=== PATIENT | male | born 1990 | race Asian ===

== ENCOUNTER 2020-10-10 15:26 | Outpatient (REF) | payer SELFPAY | END 2020-10-10 15:27 | disposition home or self-care (01) | LOC: HO.LAB 15:26 | PROVIDERS: Visit Provider Hospitalist | DX: Z20.828 Contact with and (suspected) exposure to other viral communicable diseases (principal) | CPT/HCPCS: U0003 ==

== ENCOUNTER 2021-05-14 15:45 | Outpatient (REF) | payer OTHER, BC, SELFPAY ==
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
== END 2021-05-14 15:46 | disposition home or self-care (01) ==
LOC: HO.HMGCX 15:45
PROVIDERS: Visit Provider Nurse Practitioner Family
DX: M54.2 Cervicalgia (principal); M25.511 Pain in right shoulder; V29.9XXA Motorcycle rider (driver) (passenger) injured in unspecified traffic accident, initial encounter
CPT/HCPCS: 72040; 73000; 73030

== ENCOUNTER 2023-01-01 08:57 | Emergency (ER) | payer OTHER, SELFPAY ==
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
[2023-01-01 09:04] VITALS: BP 150/90; PULSE 78
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
[2023-01-01 09:15] VITALS: BP 161/81; PULSE 74; RESP 16; TEMP 36.4; O2SAT 100; BMI 33.9
[2023-01-01] MEDS: Ketorolac Tromethamine 15 MG/ML VIAL IM (10:08)
== END 2023-01-01 11:03 | disposition home or self-care (01) ==
PROVIDERS: Emergency Provider Emergency Medicine
DX: M25.511 Pain in right shoulder (principal); S49.91XA Unspecified injury of right shoulder and upper arm, initial encounter; V43.52XA Car driver injured in collision with other type car in traffic accident, initial encounter; Y92.410 Unspecified street and highway as the place of occurrence of the external cause; Y99.9 Unspecified external cause status
CPT/HCPCS: 71046; 73030; 73200; 96372; 99283; 99284; J1885

== ENCOUNTER → 2023-01-19 10:26 | Outpatient (BNVA) | payer OTHER, SELFPAY | PROVIDERS: PCP Internal Medicine; Visit Provider Physician Assistant | DX: S13.9XXA Sprain of joints and ligaments of unspecified parts of neck, initial encounter (principal) | CPT/HCPCS: 99202 ==

== ENCOUNTER → 2023-03-02 09:47 | Outpatient (BNVA) | payer OTHER, SELFPAY | PROVIDERS: PCP Internal Medicine; Visit Provider Physician Assistant | DX: M25.511 Pain in right shoulder (principal) | CPT/HCPCS: 99212 ==

== ENCOUNTER 2023-03-05 07:00 | Outpatient (RCR) | payer OTHER, SELFPAY ==
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
== END 2023-04-06 07:21 | disposition home or self-care (01) ==
LOC: HO.PTCHIC 07:00
PROVIDERS: PCP Internal Medicine; Visit Provider Internal Medicine
DX: M25.511 Pain in right shoulder (principal); M25.521 Pain in right elbow; M25.421 Effusion, right elbow
CPT/HCPCS: 97014; 97110; 97140; 97161

== ENCOUNTER → 2023-03-10 10:10 | Outpatient (BNVA) | payer OTHER, SELFPAY | PROVIDERS: PCP Internal Medicine; Visit Provider Registered Nurse Emergency | DX: M25.519 Pain in unspecified shoulder (principal); M54.2 Cervicalgia | CPT/HCPCS: 99202 ==

== ENCOUNTER 2023-04-02 13:01 | Outpatient (REF) | payer OTHER, SELFPAY | END 2023-04-02 13:02 | disposition home or self-care (01) | LOC: HO.MRI 13:01 | PROVIDERS: PCP Internal Medicine; Visit Provider Physician Assistant | DX: Z13.89 Encounter for screening for other disorder (principal) ==

== ENCOUNTER 2023-04-05 09:30 | Outpatient (RCR) | payer OTHER, SELFPAY ==
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
--- NOTE | 2023-05-10 09:35 | MHC.OT.DC ---
[address] [phone] F: [phone] Occupational Therapy Discharge Note Patient Name: Jimmy Perla Provider: Ana Dockery Diagnosis: Right elbow effusion Date of Surgery: Date of Evaluation: 03/24/23 Date of Discharge: 05/10/23 Treatments to Date: 5 Cancellations to Date: 0 No Shows to Date: 0 Discharge Status: Improved Function Independent with HEP Discharge Summary: STG met for ther ex and ADL. LTG met for complaints coordinator strength and lifting tolerance Dec complaint of pain, increased tolerance with ther ex. Improved shoulder pain noted with lift off ex [employer] R 95 lb L 80 lb Wt bearing on scale Right 80 lb L 100 lb . complaint of shoulder discomfort. Electronically Signed By: Aline Weston OT CHT CLT Reviewed/agree with student documentation: Therapist: Please Sign and return to therapist, thank you for your referral.
== END 2023-05-10 09:36 | disposition home or self-care (01) ==
LOC: HO.OT 09:30
PROVIDERS: PCP Internal Medicine; Visit Provider Internal Medicine
DX: M25.521 Pain in right elbow (principal); M25.421 Effusion, right elbow
CPT/HCPCS: 97035; 97110; 97165

== ENCOUNTER 2023-05-06 11:37 | Outpatient (AMB) | payer OTHER, SELFPAY ==
--- NOTE | 2023-05-06 11:38 | MHC.OFFVIS ---
Intake Intake Visit Reasons: Tele- MRI Review RT shoulder pain DOI 01/01/2023 Intake Note: Jimmy is a 32 year old patient who has a telehealth visit for his MRI review of his right shoulder. Allergies mometasone furoate [From NASONEX] Allergy (Intermediate, Verified 05/06/23 11:38) PALPITATIONS cat dander Allergy (Unknown, Verified 05/06/23 11:38) unknown Doxycycline Hyclate Allergy (Unknown, Verified 05/06/23 11:38) Hives, hives;fever fluticasone [From Flonase] Allergy (Unknown, Verified 05/06/23 11:38) heart palpitations oxycodone [Percocet] Allergy (Unknown, Verified 05/06/23 11:38) nausea/dizziness Flour/Dough Allergy (Unknown, Uncoded 03/10/23 10:29) Hives/trouble breathing HPI Tele- MRI Review RT shoulder pain DOI 01/01/2023 HPI Details 32-year-old male who presents via telehealth today for a follow up of right shoulder pain and review of his MRI. The patient reports new symptoms that began in the last few weeks of numbness and tingling that extends in to all digits. [facility] Medical History Diffuse abdominal pain Erythema intertrigo Family history of Crohn's disease GERD (gastroesophageal reflux disease) GI bleed Hidradenitis suppurativa of left axilla Obesity Pain of acromioclavicular joint after trauma Surgical History No pertinent past surgical history Family History Father Unknown family medical history Subacromial bursitis of both shoulders Substance abuse Mother IBS (irritable bowel syndrome) Mental health disorder Maternal Grandmother Unknown family medical history Brother Crohn's disease Maternal Aunt Crohn's disease Social History Housing: House Alcohol intake: never Patient Tobacco Use Status: Never used Tobacco e-Cigarette/Vaping Use: Never Used Second Hand Smoke Exposure: No service: No Current occupational status: employed Cognitive needs: No Hearing needs: No Vision needs: No Review of Systems Const All systems reviewed & are unremarkable except as noted in HPI and below Physical Exam Extrem Other: Deferred due to being a telehealth visit. Assessment & Plan Assessment & Plan (1) Pain of acromioclavicular joint after trauma: Code(s): M25.519 - Pain in unspecified shoulder (2) Pain in clavicular joint: Code(s): M25.519 - Pain in unspecified shoulder (3) Shoulder pain: Code(s): M25.519 - Pain in unspecified shoulder Plan Mr. Adair Perla is a 32-year-old male who presents via telehealth today for a follow up of right shoulder pain and review of his MRI. The patient reports new symptoms that began in the last few weeks of numbness and tingling that extends in to all digits. Due to the new symptoms he will be referred to Pain Management for further evaluation and treatment of the cervical spine. He is in agreement. The patient has been out of work and therefore an out of work note have been provided stating he will remain out of work until he is seen by Pain management. Follow up with orthopedics will be PRN, or sooner if needed. MRI of the right shoulder, obtained at [facility] on 04/16/2023, revealed: 1. No rotator cuff tear. 2. No joint effusion. Orders: Referrals Pain Management Referral S13.9XXA - Sprain of joints and ligaments of unspecified parts of neck, initial encounter, S46.819A - Strain of other muscles, fascia and tendons at shoulder and upper arm level, unspecified arm, initial encounter Patient Instructions: Scribed for Phuong Javier PA-C by [facility] medical staff assistant, on 05/06/2023 at 11:37 am, EST. Your attestation Telehealth Telehealth Location of provider rendering services: practice address Location of patient: address on file Patient Identification confirmed using: Name, : Yes Telehealth method: voice only Patient verbally consented to treatment: Yes Patient verbally consented to billing insurance company: Yes Patient informed of any privacy concerns related to visit: Yes Minutes spent on Phone/Video with Pt.: 5 Coding Level of Care Code Tele Est Pt Level 3 (09177) Diagnoses Pain of acromioclavicular joint after trauma M25.519 Pain in clavicular joint M25.519 Shoulder pain M25.519
== END 2023-05-06 11:49 | disposition home or self-care (01) ==
LOC: HO.HOS 11:37
PROVIDERS: PCP Internal Medicine; Visit Provider Physician Assistant
DX: M25.511 Pain in right shoulder (principal); S13.9XXA Sprain of joints and ligaments of unspecified parts of neck, initial encounter
CPT/HCPCS: 99213

== ENCOUNTER → 2023-05-06 11:37 | Outpatient (BNVA) | payer OTHER, SELFPAY | PROVIDERS: PCP Internal Medicine; Visit Provider Physician Assistant ==

== ENCOUNTER 2023-05-12 09:25 | Outpatient (AMB) | payer OTHER, SELFPAY ==
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
[2023-05-12 09:42] VITALS: BP 150/87; PULSE 75; O2SAT 98; BMI 34.9
== END 2023-05-12 10:16 | disposition home or self-care (01) ==
PROVIDERS: PCP Internal Medicine; Visit Provider Registered Nurse Emergency
DX: M54.12 Radiculopathy, cervical region (principal); M79.18 Myalgia, other site; S46.819A Strain of other muscles, fascia and tendons at shoulder and upper arm level, unspecified arm, initial encounter
CPT/HCPCS: 99214

== ENCOUNTER → 2023-05-12 09:25 | Outpatient (BNVA) | payer OTHER, SELFPAY | PROVIDERS: PCP Internal Medicine; Visit Provider Registered Nurse Emergency | DX: M54.12 Radiculopathy, cervical region (principal); M79.18 Myalgia, other site; S46.811D Strain of other muscles, fascia and tendons at shoulder and upper arm level, right arm, subsequent encounter; M25.511 Pain in right shoulder; X58.XXXD Exposure to other specified factors, subsequent encounter | CPT/HCPCS: 99212 ==

== ENCOUNTER 2024-11-09 14:15 | Outpatient (AMB) | payer OTHER, SELFPAY ==
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
[2024-11-09 14:28] VITALS: BP 144/92; PULSE 67; O2SAT 98
== END 2024-11-09 14:41 | disposition home or self-care (01) ==
PROVIDERS: PCP Internal Medicine; Visit Provider Registered Nurse Emergency
DX: M54.12 Radiculopathy, cervical region (principal); M79.18 Myalgia, other site; S46.819A Strain of other muscles, fascia and tendons at shoulder and upper arm level, unspecified arm, initial encounter
CPT/HCPCS: 99213; G2211

== ENCOUNTER → 2024-11-09 14:15 | Outpatient (BNVA) | payer OTHER, SELFPAY | PROVIDERS: PCP Internal Medicine; Visit Provider Registered Nurse Emergency | DX: M54.12 Radiculopathy, cervical region (principal); M79.18 Myalgia, other site; S46.819A Strain of other muscles, fascia and tendons at shoulder and upper arm level, unspecified arm, initial encounter | CPT/HCPCS: 99212 ==

== ENCOUNTER 2025-03-28 13:43 | Outpatient (AMB) | payer OTHER, SELFPAY ==
--- OUTSIDE RECORDS SUMMARY | 2025-03-28 13:55 | XMS_ITS | Clinical Summary ---
Author Organization [facility] Address [address] [place] [address] Care Team Providers Care Sr Technical Sales Consultant Name Role Phone Unavailable Primary Care Provider Unavailabl e Immunizations Immunization Administration Dates Next Due Covid-19, Vector-nr (Flo), 0.5 Ml 01/30/2021 Hep B (adult) 11/28/2020 Influenza,injectable,quad,Prsrv Fr 11/28/2020 Social History Tobacco Use Types Packs/Day Years Used Date Smoking Tobacco: Never Assessed Sex and Gender Information Value Date Recorded Sex Assigned at Not on file Legal Sex Male 3:10 PM EDT Gender Identity Not on file Sexual Orientation Not on file Plan of Treatment Health Maintenance Due Date Last Done Comments Hepatitis C Screening 1988 DTaP/Tdap/Td (1 - Tdap) 2006 Hep B (2 of 3 - 19+ 3-dose series) 12/26/20202020 COVID-19 Vaccine (2 - 2023-2 5 season) 2024 01/30/2021 Influenza (Season Ended) 2025 11/28/2020 Zoster (Shingrix) (1 of 2) 2038 HPV Vaccine Aged Out No longer eligi ble based on patient's age to complete this topic Hep A Aged Out No longer eligi ble based on patient's age to complete this topic Hib Aged Out No longer eligi ble based on patient's age to complete this topic Meningococcal ACWY Aged Out No longer eligible based on patient's age to complete this topic Pneumococcal Aged Out No longer eligi ble based on patient's age to complete this topic
[2025-03-28 14:29] VITALS: BP 140/70; PULSE 71; RESP 16; TEMP 36.7; O2SAT 98; BMI 35.4
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
== END 2025-03-28 15:08 | disposition home or self-care (01) ==
PROVIDERS: PCP Internal Medicine; Visit Provider Physician Assistant
DX: F41.0 Panic disorder [episodic paroxysmal anxiety] (principal); M54.6 Pain in thoracic spine; Z13.9 Encounter for screening, unspecified

== ENCOUNTER → 2025-03-28 13:43 | Outpatient (BNVA) | payer OTHER, SELFPAY | PROVIDERS: PCP Internal Medicine; Visit Provider Physician Assistant | DX: F41.0 Panic disorder [episodic paroxysmal anxiety] (principal); F41.9 Anxiety disorder, unspecified; M54.6 Pain in thoracic spine; Z71.89 Other specified counseling | CPT/HCPCS: 81003 ==

== ENCOUNTER 2025-03-30 15:09 | Outpatient (AMB) | payer OTHER, SELFPAY ==
--- NOTE | 2025-03-30 15:11 | A.OFFVIS_ITS ---
Vital Signs 03/30/25 15:12 03/30/25 15:30 Height 6 ft Weight 251 lb BMI 34.0 BP 166/96 H 161/88 H Blood Pressure Location Lt brachial Lt brachial Position Sitting Sitting Pulse 89 86 Pulse Source Pulse Oximeter Pulse Oximeter Pulse Oximetry (%) 100 100 Oxygen Delivery Method Room Air Room Air Intake Visit Reasons: Back Pain Intake Note: Patient blood pressure is high. Girlfriend stated he has been having anxiety issues this week of 03/30/25. Patient went to an urgent care on Wednesday and he was prescribed Meloxicam 15 mg and hydroxyzine 25 mg. Second set of vitals were taken. 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 Accompanied by: Life Partner Allergies mometasone furoate [From NASONEX] Allergy (Intermediate, Verified 03/30/25 15:45) PALPITATIONS cat dander Allergy (Unknown, Verified 03/30/25 15:45) unknown Doxycycline Hyclate Allergy (Unknown, Verified 03/30/25 15:45) Hives, hives;fever fluticasone [From Flonase] Allergy (Unknown, Verified 03/30/25 15:45) heart palpitations oxycodone [Percocet] Allergy (Unknown, Verified 03/30/25 15:45) nausea/dizziness Flour/Dough Allergy (Unknown, Uncoded 03/28/25 14:30) Hives/trouble breathing HPI Comments Details: Jimmy is very pleasant 34-year-old male who presented to the office today for evaluation management of his lower back pain. Upon arrival he was found to be hypertensive 166/96 and complaining of significant anxiety over the past several days. He is accompanied by his significant other. Patient was evaluated at urgent care 2 days ago, given meloxicam and hydroxyzine. He reports no improvement with hydroxyzine. Has an appointment with psychologist in one-week Denies SI/HI/SH. He is unable to detail what is causing his anxiety/panic attacks. Today states he was mainly in the basement with a pillow over his head as the anxiety was just unbearable. Girlfriend says he did go for a walk at one point and ate part of a sandwich but otherwise remained in the home. [facility] Medical History Diffuse abdominal pain Erythema intertrigo Family history of Crohn's disease GERD (gastroesophageal reflux disease) GI bleed Hidradenitis suppurativa of left axilla Obesity Pain of acromioclavicular joint after trauma Surgical History No pertinent past surgical history Family History Father Unknown family medical history Subacromial bursitis of both shoulders Substance abuse Mother IBS (irritable bowel syndrome) Mental health disorder Maternal Grandmother Unknown family medical history Brother Crohn's disease Maternal Aunt Crohn's disease Social History Housing: House Alcohol intake: never Patient Tobacco Use Status: Never used Tobacco e-Cigarette/Vaping Use: Never Used Second Hand Smoke Exposure: No service: No Current occupational status: employed Cognitive needs: No Hearing needs: No Vision needs: No Review of Systems Const All systems reviewed & are unremarkable except as noted in HPI and below Physical Exam Vital Signs: Last Vital Signs Pulse 86 03/30/25 15:30 BP 161/88 H 03/30/25 15:30 Pulse Ox 100 03/30/25 15:30 Oxygen Delivery Method Room Air 03/30/25 15:30 BMI result Body Mass Index 34.0 General: Anxious, pale, diaphoretic. HEENT: Normocephalic. Hearing intact. Cardiac: External chest normal in appearance. Respiratory: No cough, audible wheezing or stridor. Abdomen: without gross distension. MS: No obvious swelling or deformities. Neurological: Oriented to person, place, time and situation. Thought process intact. Assessment & Plan Assessment & Plan (1) Back pain: Code(s): M54.9 - Dorsalgia, unspecified Category: Medical Qualifiers: Back pain location: thoracic back pain Chronicity: acute Back pain laterality: left Qualified Code(s): M54.6 - Pain in thoracic spine (2) Panic attacks: Code(s): F41.0 - Panic disorder [episodic paroxysmal anxiety] Category: Medical Plan Patient agreed to be in the emergency room. He was escorted there by his significant other. Ambulated out of our department with a steady gait. Denies SI, HI, self-harm. They were advised to contact [facility] if needed for emergency evaluation. In crisis [facility] will also come to their home. Patient was advised to follow up in our office for evaluation and management of his lower back pain once his anxiety/mental health has been addressed. Coding Level of Care Code Est Pt Level 3 (09934) Complex EM visit Add On G2211 Diagnoses Acute left-sided thoracic back pain M54.6 Back pain location: thoracic back pain Chronicity: acute Back pain laterality: left Panic attacks F41.0
[2025-03-30 15:12] VITALS: BP 166/96; PULSE 89; O2SAT 100; BMI 34.0
--- OUTSIDE RECORDS SUMMARY | 2025-03-30 15:12 | XMS_ITS | Clinical Summary ---
Author Organization [facility] Address [address] [place] [address] Care Team Providers Care Research Program Coordinator Name Role Phone Unavailable Primary Care Provider [...]
[2025-03-30 15:30] VITALS: BP 161/88; PULSE 86; O2SAT 100
== END 2025-03-30 15:29 | disposition home or self-care (01) ==
LOC: HO.PMC 15:10
PROVIDERS: PCP Internal Medicine; Visit Provider Registered Nurse Emergency
DX: M54.6 Pain in thoracic spine (principal); F41.0 Panic disorder [episodic paroxysmal anxiety]
CPT/HCPCS: 99213; G2211

== ENCOUNTER → 2025-03-30 15:09 | Outpatient (BNVA) | payer OTHER, SELFPAY | PROVIDERS: PCP Internal Medicine; Visit Provider Registered Nurse Emergency | DX: M54.6 Pain in thoracic spine (principal); F41.0 Panic disorder [episodic paroxysmal anxiety] | CPT/HCPCS: 99212 ==

== ENCOUNTER 2025-03-30 15:33 | Emergency (ER) | payer OTHER, SELFPAY ==
--- NOTE | ~2025-03-30 | XR_ITS ---
CLINICAL HISTORY: central chest pain 2 view chest x-ray. Comparison: None Findings: The lungs appear clear. There is no consolidation, effusion, or pneumothorax. Cardiomediastinal silhouette is within normal limits. IMPRESSION: No acute cardiopulmonary abnormality. This document has been electronically signed by: Babatunde Rodarte MD on 03/31/2025 02:29:30
--- NOTE | 2025-03-30 15:34 | ECG_ITS ---
Test Reason : cp Blood Pressure : */* mmHG Vent. Rate : 86 BPM Atrial Rate : 86 BPM P-R Int : 134 ms QRS Dur : 92 ms QT Int : 350 ms P-R-T Axes : 62 25 27 degrees QTcB Int : 418 ms Sinus rhythm with marked sinus arrhythmia Otherwise normal ECG When compared with ECG of 08-Sep-2014 12:43, No significant change was found Referred By: Phoebe Nichols Electronically Signed By: KAMRON GILLIS
[2025-03-30 15:39] VITALS: BP 152/93; PULSE 85; RESP 16; TEMP 36.2; O2SAT 100; BMI 34.3
--- NOTE | 2025-03-30 15:46 | ED_ITS ---
HPI - General Adult General Chief complaint: Anxiety Stated complaint: chest pain panic attack Time Seen by Provider: 03/30/25 22:36 History of Present Illness ED Provider: Noah Drake MD HPI narrative: 34-year-old male with a history of self-described anxiety recently prescribed Atarax. He has had multiple recurrent episodes of transient self-limited difficulty breathing rapid heart rate and anxious dissociated feeling. Today he had this associated with constant atypical tightness of the anterior chest without radiation. No numbness tingling or weakness. Related Data Home Medications ?Medication ?Instructions ?Recorded ?Confirmed cholecalciferol (vitamin D3) 10 10 mcg PO DAILY 11/09/24 mcg (400 unit) capsule Previous Rx's ?Medication ?Instructions ?Recorded tizanidine 2 mg tablet 2 mg PO Q8H PRN muscle spasticity 11/09/24 #60 tabs hydroxyzine HCl 25 mg tablet 25 mg PO BEDTIME #14 tabs 03/28/25 meloxicam 15 mg tablet 15 mg PO DAILY PRN pain, moderate 03/28/25 #15 tabs clonazepam 0.5 mg tablet 0.5 mg PO BID 5 days #10 tabs 03/31/25 Allergies Allergy/AdvReac Type Severity Reaction Status Date / Time mometasone furoate Allergy Intermediate PALPITATION Verified 03/30/25 15:45 [From NASONEX] S cat dander Allergy Unknown unknown Verified 03/30/25 15:45 Doxycycline Hyclate Allergy Unknown Hives, Verified 03/30/25 15:45 hives;fever fluticasone [From Flonase] Allergy Unknown heart Verified 03/30/25 15:45 palpitations oxycodone [Percocet] Allergy Unknown nausea/dizz Verified 03/30/25 15:45 iness Flour/Dough Allergy Unknown Hives/trouble Uncoded 03/28/25 14:30 breathing Review of Systems 2 Review of Systems: No smoking no drug use. Decreased appetite but no GI upset or diarrhea PMFSH Past Medical History Medical History Diffuse abdominal pain Erythema intertrigo Family history of Crohn's disease GERD (gastroesophageal reflux disease) GI bleed Hidradenitis suppurativa of left axilla Obesity Pain of acromioclavicular joint after trauma Surgical History No pertinent past surgical history Family History Family History Father Unknown family medical history Subacromial bursitis of both shoulders Substance abuse Mother IBS (irritable bowel syndrome) Mental health disorder Maternal Grandmother Unknown family medical history Brother Crohn's disease Maternal Aunt Crohn's disease Social History Social History Housing: House Alcohol intake: current Patient Tobacco Use Status: Never used Tobacco Smoked in Last 30 Days: No e-Cigarette/Vaping Use: Never Used Second Hand Smoke Exposure: No Use of substances other than those prescribed or required for medical reasons: Yes Substance Use Type: Marijuana Substance Use Frequency: Daily Advance Directives: No Advance Directives Information Provided: No Do you have a plan to hurt others: No Plan service: No Current occupational status: employed Cognitive needs: No Hearing needs: No Vision needs: No Physical Exam ED Vital Signs: Vital Signs - 24 hr 03/30/25 15:39 03/30/25 22:03 03/31/25 00:57 Temperature 97.2 F Pulse Rate 85 75 88 Respiratory Rate 16 16 14 Blood Pressure 152/93 H 132/81 160/96 H Pulse Oximetry 100 99 99 Oxygen Delivery Method Room Air Room Air BMI result Body Mass Index 34.3 Course Course Course Narrative: 03/30/25 1546 JAYESH Maciel This is a Rapid Medical Examination (RME) performed by Rosanna Nichols PA-C in triage. Full HPI, ROS, assessment and treatment plan per primary provider in the Main ED. Hx: 34 yo M here for eval of increased anxiety/ panic attacks x5 days. assoc SOB, palpitations, light headedness. no recent life stressors. no hx of similar prior to 5d ago. PE/vitals: well appearing Plan: labs, ekg Medications Administered Discontinued Medications Generic Name Dose Route Start Last Admin Trade Name Freq PRN Reason Stop Dose Admin Clonazepam 0.5 mg 03/31/25 00:30 03/31/25 00:56 Clonazepam 0.5 Mg Tablet PO 03/31/25 00:31 0.5 mg ONCE ONE Administration Ondansetron HCl 4 mg 03/31/25 00:30 03/31/25 00:56 Ondansetron Odt 4 Mg Tab.Marjorie VELAZQUEZ 03/31/25 00:31 4 mg ONCE ONE Administration Medical Decision Making Medical Decision Making MDM Narrative: 34-year-old male with recurrent episode which is ongoing for few weeks now of anxious feeling follow up by subjective difficulty breathing occasionally associated with chest discomfort today he went into his PCPs office and had another episode which started with spiraling thoughts and chest discomfort anxious and panic feeling sent over from PCP's office to the ED. He does have history of asthma but does not feel dyspneic or wheezing. Denies fever, leg swelling history of DVT or PE. Family history 2 maternal uncles young in the 40s and 50s are possibly suggestive of sudden cardiac or AK but he is not clear if this. He has no personal diagnosed medical history aside from asthma. He has had decreased appetite poor sleep Differential Diagnosis Differential Diagnoses: The differential diagnosis associated with the presentation includes Anxiety, panic disorder, electrolyte derangement, dehydration, thyroid disorder, less likely AK/pericarditis/pleuritis Lab Data MDM Lab Attestation statement: I reviewed the patient's lab results. 03/30/25 15:51 03/30/25 15:51 Labs: Lab Results 03/30/25 03/31/25 Range/Units 15:51 00:49 WBC 11.5 H (4.8-10.8) X10*3/uL RBC 6.10 H (4.60-5.80) X10*6/uL Hgb 17.0 (14.0-18.0) g/dl Hct 50.3 (42.0-52.0) % MCV 82.5 (80.0-98.0) fL MCH 27.9 (27.0-33.0) pg MCHC 33.8 (31.0-36.0) g/dl RDW 13.5 (11.0-16.0) % Plt Count 403 H (160-400) X10*3/uL MPV 9.2 L (9.4-12.4) fL Immature Gran % (Auto) 0.3 (0.0-0.4) % Neut % (Auto) 67.3 (45-73) % Lymph % (Auto) 24.0 (20-40) % Whitman % (Auto) 7.5 (2-11) % Eos % (Auto) 0.3 (0-4) % Baso % (Auto) 0.6 (0-2) % Lymph # (Auto) 2.8 (1.2-4.9) X10*3/uL Whitman # (Auto) 0.9 (0.1-1.2) X10*3/uL Eos # (Auto) 0.0 (0.0-0.4) X10*3/uL Baso # (Auto) 0.1 (0.0-0.2) X10*3/uL Abs Immat Gran (auto) 0.04 H (0.00-0.03) X10*3/uL Absolute Neuts (auto) 7.7 (2.0-8.3) x10*3/uL Absolute Nucleated RBC 0.000 (0.0-0.012) X10*3/uL Nucleated RBC % (auto) 0.0 (0.0-0.2) /100WBC Sodium 143 (135-145) mmol/L Potassium 3.7 (3.3-5.1) mmol/L Chloride 108 (96-108) mmol/L Carbon Dioxide 20 L (22-29) mmol/L Anion Gap 19 (12-20) BUN 11 (9-16) mg/dL Creatinine 0.94 (0.5-1.4) mg/dL Estim Creat Clear Calc 141.9 Estimated GFR > 60 Random Glucose 98 (60-115) mg/dL Calcium 10.8 H (8.4-10.2) mg/dL Magnesium 1.9 (1.6-2.6) mg/dL Total Bilirubin 0.9 (0.0-1.0) mg/dL AST 28 (5-37) U/L ALT 56 H (0-40) U/L Alkaline Phosphatase 125 H (39-117) U/L Troponin I High Sens 12.0 5.4 D (<3.5-35.0) ng/L Total Protein 8.8 H (6.5-8.0) g/dL Albumin 5.7 H (3.5-5.0) g/dL TSH 1.17 (0.32-4.0) uIU/mL Independent Interpretation I performed an independent interpretation of an: EKG (1.: Sinus rate [address]tle [address] depression in lead 3. No acute ischemic changes. Repeat 2. 01/28/2000, sinus, rate 86, QTC 433, unchanged morphology from previous no acute ischemic changes ) Discharge Plan Discharge Clinical Impression: Chest pain, Anxiety Patient Disposition: Home, Self-Care Instructions: Panic Disorder (ED) Additional Instructions: _ DISCHARGE DIAGNOSES: Chest pain unclear cause. Atypical unlikely cardiac in origin. You may need outpatient cardiac testing if this persists HISTORY OF PRESENTATION: ?Anxiety and chest pain EMERGENCY DEPARTMENT COURSE,TESTS, TREATMENTS: While in the ED today you had lab work and EKG including heart attack enzyme blood testing which was normal. EKG was normal. Chest x-ray was normal. You were given clonazepam an anxiety medicine 0.5 mg and Zofran and nausea medicine 4 mg DISCHARGE MEDICATIONS: We have prescribed only as needed for severe anxiety 0.5 mg of clonazepam. FOLLOW-UP: ?Call your primary or general physician soon as possible to discuss your symptoms, your ED visit and to discuss follow up plans Continue with your outpatient scheduled psychiatry follow up this coming INSTRUCTIONS ?& RETURN PRECAUTIONS: If any symptoms change first call your primary physician, if it is after-hours your primary doctors office should have a provider nursing education specialist you can speak with. If the symptoms are severe or very concerning to you then call 911 or return to the ED. Return for severe worsening chest pain difficulty breathing coughing up blood leg swelling or other severe or significant symptoms Noah Drake MD Emergency Physician [facility] Prescriptions: New clonazepam 0.5 mg tablet 0.5 mg PO BID 5 Days Qty: 10 0RF No Action cholecalciferol (vitamin D3) 10 mcg (400 unit) capsule 10 mcg PO DAILY tizanidine 2 mg tablet 2 mg PO Q8H PRN (Reason: muscle spasticity) Qty: 60 3RF Rx Instructions: do not use alcohol while taking this medication. no driving or operating heavy machinery while taking this medication hydroxyzine HCl 25 mg tablet 25 mg PO BEDTIME Qty: 14 0RF meloxicam 15 mg tablet 15 mg PO DAILY PRN (Reason: pain, moderate) Qty: 15 0RF Interventions: ED Discharge Assessment Last Done: 03/31/25 01:45 Discharge Date/Time: 03/31/25 01:51 Print Language: Upper Sorbian
[2025-03-30 15:56] LABS: MANUAL DIFF FLAG NO
[2025-03-30 15:58] LABS: Basophils Absolute Auto 0.1 X10*3/uL (0.0-0.2); Basophils Percent Auto 0.6 % (0-2); Eosinophils Percent Auto 0.3 % (0-4); Hematocrit 50.3 % (42.0-52.0); Imm Gran Abs Auto 0.04 X10*3/uL (0.00-0.03); Imm Gran Pct Auto 0.3 % (0.0-0.4); Lymphocytes Absolute Auto 2.8 X10*3/uL (1.2-4.9); Mean Corpuscular HGB Conc 33.8 g/dl (31.0-36.0); Mean Corpuscular Hemoglobin 27.9 pg (27.0-33.0); Mean Corpuscular Volume 82.5 fL (80.0-98.0); Mean Platelet Volume 9.2 fL (9.4-12.4); Monocytes Absolute Auto 0.9 X10*3/uL (0.1-1.2); Monocytes Percent Auto 7.5 % (2-11); Neutrophils Absolute Auto 7.7 x10*3/uL (2.0-8.3); Neutrophils Percent Auto 67.3 % (45-73); Platelet Count 403 X10*3/uL (160-400); Red Cell Distribution Width 13.5 % (11.0-16.0); White Blood Count 11.5 X10*3/uL (4.8-10.8)
[2025-03-30 16:19] LABS: Alanine Aminotransferase 56 U/L (0-40); Albumin Level 5.7 g/dL (3.5-5.0); Anion Gap 19 (12-20); Aspartate Amino Transferase 28 U/L (5-37); Bilirubin Total 0.9 mg/dL (0.0-1.0); Blood Urea Nitrogen 11 mg/dL (9-16); Calcium 10.8 mg/dL (8.4-10.2); Carbon Dioxide 20 mmol/L (22-29); Chloride 108 mmol/L (96-108); Creatinine Clr Calc Pharmacy 141.9; Estimated Glomerular Filt Rate > 60; Glucose Random 98 mg/dL (60-115); Magnesium 1.9 mg/dL (1.6-2.6); Potassium 3.7 mmol/L (3.3-5.1); Sodium 143 mmol/L (135-145); Total Protein 8.8 g/dL (6.5-8.0)
[2025-03-30 16:33] LABS: TSH reflex Free T4 1.17 uIU/mL (0.32-4.0)
[2025-03-30 18:45] LABS: Alkaline Phosphatase 125 U/L (39-117)
[2025-03-30 22:03] VITALS: BP 132/81; PULSE 75; RESP 16; O2SAT 99
--- NOTE | 2025-03-31 00:34 | ECG_ITS ---
Test Reason : cp Blood Pressure : */* mmHG Vent. Rate : 87 BPM Atrial Rate : 87 BPM P-R Int : 140 ms QRS Dur : 94 ms QT Int : 360 ms P-R-T Axes : 63 25 0 degrees QTcB Int : 433 ms Normal sinus rhythm with sinus arrhythmia T wave abnormality, consider inferior ischemia Abnormal ECG When compared with ECG of 30-Mar-2025 15:36, No significant change was found Referred By: Noah Drake Electronically Signed By: KAMRON GILLIS
[2025-03-31] MEDS: Ondansetron ODT 4 MG TAB.RAPDIS TRANSLINGU (00:56)
[2025-03-31] MEDS: clonazePAM 0.5 MG TABLET PO (00:56)
[2025-03-31 00:57] VITALS: BP 160/96; PULSE 88; RESP 14; O2SAT 99
[2025-03-31 01:20] LABS: Troponin-I High Sensitivity 5.4 ng/L (<3.5-35.0)
[2025-03-31 01:45] VITALS: BP 113/85; PULSE 101; RESP 19; TEMP 36.6; O2SAT 99
== END 2025-03-31 01:51 | disposition home or self-care (01) ==
PROVIDERS: Physician Assistant Medical; Emergency Provider Emergency Medicine; PCP Internal Medicine
DX: R07.89 Other chest pain (principal); F41.9 Anxiety disorder, unspecified; I49.8 Other specified cardiac arrhythmias; R06.02 Shortness of breath; Z79.899 Other long term (current) drug therapy
CPT/HCPCS: 36415; 71046; 80053; 83735; 84443; 84484; 85025; 93005; 99283; 99285

== ENCOUNTER → 2025-03-30 15:34 | Outpatient (BNV) | payer OTHER, SELFPAY | PROVIDERS: Emergency Provider Emergency Medicine; PCP Internal Medicine; Visit Provider Internal Medicine | DX: I49.8 Other specified cardiac arrhythmias (principal) | CPT/HCPCS: 93010 ==

== ENCOUNTER → 2025-03-31 00:34 | Outpatient (BNV) | payer OTHER, SELFPAY | PROVIDERS: Emergency Provider Emergency Medicine; PCP Internal Medicine; Visit Provider Internal Medicine | DX: R94.31 Abnormal electrocardiogram [ECG] [EKG] (principal); R07.9 Chest pain, unspecified | CPT/HCPCS: 93010 ==

== ENCOUNTER → 2025-03-31 01:06 | Outpatient (BNV) | payer OTHER, SELFPAY | PROVIDERS: Emergency Provider Emergency Medicine; PCP Internal Medicine; Visit Provider Radiology Diagnostic Radiology | DX: R07.9 Chest pain, unspecified (principal) | CPT/HCPCS: 71046 ==

== ENCOUNTER 2025-04-09 09:50 | Emergency (ER) | payer OTHER, SELFPAY ==
[2025-04-09 10:20] VITALS: BP 147/91; PULSE 96; RESP 18; TEMP 35.8; O2SAT 100; BMI 34.0
[2025-04-09 11:43] VITALS: BP 144/91; PULSE 94; RESP 16; TEMP 36.8; O2SAT 97
--- NOTE | 2025-04-09 11:56 | ED.ANXIETY ---
HPI - Anxiety General Chief Complaint: Anxiety Stated Complaint: anxiety Time Seen by Provider: 04/09/25 11:40 Source: patient Mode of arrival: ambulatory Limitations: no limitations History of Present Illness ED Provider: Dr. Haresh Kim HPI narrative: 34-year-old male who presents emergency department for evaluation feeling of anxiety, palpitations, chest tightness, diaphoresis. the patient is seen in the emergency department on 03/30/2025 ( 10 days prior ) for similar complaint with symptoms starting approximately 2 weeks prior to the 1st visit. Patient was diagnosed with chest pain anxiety and given a prescription for clonazepam 0.5 mg b.i.d. for 5 days. patient states that the clonazepam did help with since running out of this medication he is anxious again. Patient states that his mind starts running which causes a to feel anxious, states this heart beats fast and skipped beats. He becomes diaphoretic and also gets tightness in his chest. He states the gets frequent episodes of these feelings. Patient states that has significant daily stress but cannot point to any specific stressor that is causing his symptoms. He does not believe he is depressed. He denies being suicidal or homicidal. Patient states he does have an appointment with a therapist on 04/12/2025 Related Data Home Medications ?Medication ?Instructions ?Recorded ?Confirmed cholecalciferol (vitamin D3) 10 10 mcg PO DAILY 11/09/24 mcg (400 unit) capsule Previous Rx's ?Medication ?Instructions ?Recorded tizanidine 2 mg tablet 2 mg PO Q8H PRN muscle spasticity 11/09/24 #60 tabs hydroxyzine HCl 25 mg tablet 25 mg PO BEDTIME #14 tabs 03/28/25 clonazepam 0.5 mg tablet 0.5 mg PO BID 5 days #10 tabs 03/31/25 clonazepam 0.5 mg tablet (Klonopin) 0.5 mg PO BID PRN Anxiety, 04/09/25 palpitations #10 tabs meloxicam 15 mg tablet 15 mg PO DAILY #15 tabs 04/09/25 propranolol 10 mg tablet 10 mg PO BID 10 days #20 tabs 04/09/25 lidocaine 5 % topical patch 1 patch topical DAILY #30 ea 04/11/25 Allergies Allergy/AdvReac Type Severity Reaction Status Date / Time mometasone furoate (From Allergy Intermediate PALPITATION Verified 04/11/25 09:46 NASONEX) S cat dander Allergy Unknown unknown Verified 04/11/25 09:46 Doxycycline Hyclate Allergy Unknown Hives, Verified 04/11/25 09:46 hives;fever fluticasone (From Flonase) Allergy Unknown heart Verified 04/11/25 09:46 palpitations oxycodone (Percocet) Allergy Unknown nausea/dizz Verified 04/11/25 09:46 iness Flour/Dough Allergy Unknown Hives/trouble Uncoded 03/28/25 14:30 breathing Review of Systems Review of Systems: Yes all other systems are reviewed and are negative [facility] Past Medical History [facility] Narrative: social history: He denies tobacco and alcohol use. He does smoke marijuana once or twice a day but states that he is stop smoking over the last month. Medical History Diffuse abdominal pain Erythema intertrigo Family history of Crohn's disease GERD (gastroesophageal reflux disease) GI bleed Hidradenitis suppurativa of left axilla Obesity Pain of acromioclavicular joint after trauma Surgical History No pertinent past surgical history Family History Family History Father Unknown family medical history Subacromial bursitis of both shoulders Substance abuse Mother IBS (irritable bowel syndrome) Mental health disorder Maternal Grandmother Unknown family medical history Brother Crohn's disease Maternal Aunt Crohn's disease Social History Social History Housing: House Alcohol intake: never Patient Tobacco Use Status: Never used Tobacco e-Cigarette/Vaping Use: Never Used Second Hand Smoke Exposure: No Substance Use Type: Marijuana service: No Current occupational status: employed Cognitive needs: No Hearing needs: No Vision needs: No Physical Exam Vital Signs: Vital Signs: Last Vital Signs Temp 97 F 04/09/25 13:11 Pulse 70 04/09/25 13:11 Resp 16 04/09/25 13:11 BP 132/87 04/09/25 13:11 Pulse Ox 100 04/09/25 13:11 O2 Del Method Room Air 06/16/25 13:11 BMI result Body Mass Index 34.0 Vital signs were normal Exam: General: Awake, alert in no distress Head: Normocephalic, atraumatic EENT: PERRL, Lids normal, sclera normal, conjunctiva normal, nose normal , ears normal, throat without erythema or exudates Neck: Supple, no adenopathy Lung: breath sounds symmetric, no wheezing, rales or rhonchi Chest: symmetric movement, nontender Heart: regular rate and rhythm, normal S1, S2 no murmurs or rubs Abdomen: soft, non-tender, nondistended, normal bowel sounds Back: no vertebral tenderness, no CVAT Extremities: no deformities, moves all extremities symmetrically Neuro: Awake, alert, oriented, normal speech, cranial nerves intact, moves all extremities symmetrically Psych: Pleasant, cooperative Medical Decision Making Medical Decision Making MDM Narrative: 34-year-old male who presents emergency department for evaluation feeling of anxiety, palpitations, chest tightness, diaphoresis x 3-4 weeks. patient states that the symptoms are often triggered by his mind racing . This is the patient's 2nd visit to the emergency department and he was prescribed clonazepam 0.5 mg b.i.d. p.r.n. anxiety at his 1st visit which did help in with the symptoms. He states he does have a follow-up appointment with a therapist on 04/12/2025. Vital signs were normal. Physical examination was unremarkable. Differential diagnosis: Includes but is not limited to Myocardial infarction, myocardial ischemia, arrhythmia, palpitations, hyperventilation syndrome, panic attacks, depression, Course: The patient's symptoms are consistent with anxiety attacks/hyperventilation syndrome with the sensation of palpitations at the onset of his symptoms. I did discuss this with the patient and the patient was prescribed propanolol 10 mg b.i.d times 10 days. I also gave him another prescription for clonazepam 0.5 mg b.i.d. as needed for anxiety. Patient is to keep his therapist appointment on 04/12/2025 and return to the emergency department if his symptoms get worse in any way. He was given printed and verbal instructions and discharged home. Admission/Observation Consideration of admission/observation: Escalation of care including admission/observation considered ( no) Prescription Management I considered prescription management with: Other beta-omero: Propanolol; benzodiazepine: Clonazepam Discharge Plan Discharge Clinical Impression: Acute hyperventilation, Palpitation Patient Disposition: Home, Self-Care Instructions: Heart Palpitations (ED), Hyperventilation (ED) Additional Instructions: Your symptoms are consistent with hyperventilation syndrome/anxiety attacks Take clonazepam 0.5 mg pills, 1 pill twice a day as needed for anxiety Take propranolol 10 mg pills, 1 pill twice a day for 10 days. This medication disrupts the hyperventilation/palpitations/anxiety cycle by slowing down your heart rate. Keep your appointment with the clinic/therapist on , 04/12/2025 Follow-up with your doctor in 2 days. Please return to the emergency department if your symptoms get worse or if you develop any symptoms that are concerning to you. Prescriptions: New propranolol 10 mg tablet 10 mg PO BID 10 Days Qty: 20 0RF clonazepam [Klonopin] 0.5 mg tablet 0.5 mg PO BID PRN (Reason: Anxiety, palpitations) Qty: 10 0RF No Action meloxicam 15 mg tablet 15 mg PO DAILY Qty: 15 0RF clonazepam 0.5 mg tablet 0.5 mg PO BID 5 Days Qty: 10 0RF cholecalciferol (vitamin D3) 10 mcg (400 unit) capsule 10 mcg PO DAILY tizanidine 2 mg tablet 2 mg PO Q8H PRN (Reason: muscle spasticity) Qty: 60 3RF Rx Instructions: do not use alcohol while taking this medication. no driving or operating heavy machinery while taking this medication hydroxyzine HCl 25 mg tablet 25 mg PO BEDTIME Qty: 14 0RF lidocaine 5 % adhesive patch,medicated 1 patch topical DAILY Qty: 30 3RF Rx Instructions: leave on most painful area for up to 12 hrs Stand Alone Forms: Work/School Release Interventions: ED Discharge Assessment Last Done: 04/09/25 13:11 Discharge Date/Time: 04/09/25 13:11 Print Language: Montenegrin
--- OUTSIDE RECORDS SUMMARY | 2025-04-09 13:10 | XMS_ITS | Clinical Summary ---
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
[2025-04-09 13:11] VITALS: BP 132/87; PULSE 70; RESP 16; TEMP 36.1; O2SAT 100
== END 2025-04-09 13:11 | disposition home or self-care (01) ==
PROVIDERS: Emergency Provider Emergency Medicine Emergency Medical Services
DX: R06.4 Hyperventilation (principal); R00.2 Palpitations; F41.9 Anxiety disorder, unspecified; Z79.899 Other long term (current) drug therapy
CPT/HCPCS: 99283; 99284

== ENCOUNTER 2025-04-11 09:41 | Outpatient (AMB) | payer OTHER, SELFPAY ==
--- NOTE | 2025-04-11 09:43 | MHC.OFFVIS ---
Vital Signs 04/11/25 09:44 Height 6 ft Weight 250 lb BMI 33.9 BP 141/90 H Blood Pressure Location Lt brachial Position Sitting Respiration 16 Pulse 74 Pulse Source Pulse Oximeter Pulse Oximetry (%) 99 Oxygen Delivery Method Room Air Intake Visit Reasons: Back Pain Special Effects Technician Required: No Accompanied by: Self / Same As Patient Allergies mometasone furoate (From NASONEX) Allergy (Intermediate, Verified 04/11/25 09:46) PALPITATIONS cat dander Allergy (Unknown, Verified 04/11/25 09:46) unknown Doxycycline Hyclate Allergy (Unknown, Verified 04/11/25 09:46) Hives, hives;fever fluticasone (From Flonase) Allergy (Unknown, Verified 04/11/25 09:46) heart palpitations oxycodone (Percocet) Allergy (Unknown, Verified 04/11/25 09:46) nausea/dizziness Flour/Dough Allergy (Unknown, Uncoded 03/28/25 14:30) Hives/trouble breathing HPI Comments Details: The patient is a 34-year-old male presenting with left sided thoracic back pain. The symptoms initiated four weeks ago from a work related mechanical strain incident, followed by an exacerbation three weeks ago during a work-related task. The pain is described as severe, persistent, and located in the mid-thoracic spine with numbness radiating around the ribs. It is exacerbated by twisting movements, certain sitting postures, and coughing. Relief measures have included lidocaine patches and analgesics, but these have provided limited temporary relief. The condition also significantly affects his daily activities, requiring periodic stops when seated, and is complicated by underlying anxiety. - Onset: Approximately four weeks ago, worsened three weeks ago following mechanical strain incidents. - Quality: Severe, persistent, sharp pinch sensation. - Location: Middle thoracic spine with radiation around rib area on left. - Exacerbating Factors: Twisting movements, certain sitting postures, sitting in a van, and coughing. - Relieving Factors: Temporary relief from manipulative maneuvers like stepping on the back, but relief only lasts about an hour. - Functional Impact: Difficulty sitting for extended periods without pain; need to stop and stretch frequently; significant discomfort impeding daily activities. - Affect: Significant anxiety exacerbated by the inconvenience of severe and persistent back pain. - Analgesia: Attempted various pain medications and daily lidocaine patches, with partial and temporary relief. - Adverse Effects: Experiencing generalized anxiety due to ongoing pain and stress from work-related issues. - Activities of Daily Living: Pain affects ability to sit comfortably for long periods; frequently needs to stop to stretch; disengagement from some functional tasks due to pain. - Aberrant Drug Related Behaviors: No behaviors indicative of medication misuse or abuse reported. [facility] Medical History Diffuse abdominal pain Erythema intertrigo Family history of Crohn's disease GERD (gastroesophageal reflux disease) GI bleed Hidradenitis suppurativa of left axilla Obesity Pain of acromioclavicular joint after trauma Surgical History No pertinent past surgical history Family History Father Unknown family medical history Subacromial bursitis of both shoulders Substance abuse Mother IBS (irritable bowel syndrome) Mental health disorder Maternal Grandmother Unknown family medical history Brother Crohn's disease Maternal Aunt Crohn's disease Social History Housing: House Alcohol intake: never Patient Tobacco Use Status: Never used Tobacco e-Cigarette/Vaping Use: Never Used Second Hand Smoke Exposure: No Substance Use Type: Marijuana service: No Current occupational status: employed Cognitive needs: No Hearing needs: No Vision needs: No Review of Systems Const Details: - Musculoskeletal: Reports severe thoracic back pain, aggravated by movement and sitting. - Neurological: Reports numbness radiating from the mid-back around the ribs. - Psychiatric: Reports severe anxiety, worsened by current stress related to pain and work circumstances. Physical Exam Vital Signs: Last Vital Signs Pulse 74 04/11/25 09:44 Resp 16 04/11/25 09:44 BP 141/90 H 04/11/25 09:44 Pulse Ox 99 04/11/25 09:44 Oxygen Delivery Method Room Air 04/11/25 09:44 BMI result Body Mass Index 33.9 General: awake, alert, oriented. Answers questions appropriately. Fully engaged in examination. Skin: warm, dry, intact HEENT: Normocephalic. Hearing intact. Cardiac: External chest normal in appearance. Respiratory: No cough, audible wheezing or stridor. Abdomen: without gross distension. MS: No obvious swelling or deformities. Able to transition from sit to stand unassisted. Ambulates with bilaterally normal heel strike and toe off Tender to palpation left lower thoracic spine. Valsalva positive Neurological: Oriented to person, place, time and situation. Thought process intact. No gait abnormalities appreciated. Psychiatric: Appropriate mood and affect. Good judgment and insight. Results Reviewed Results Reviewed: 05/14/2021 Three-view cervical spine, two-view clavicle, and 4 view right shoulder.? FINDINGS: 3 views of the cervical spine do not demonstrate any evidence of acute fracture. Disc spaces are maintained. No abnormal prevertebral soft tissue swelling. Bilateral cervical ribs are present. Views of the right clavicle do not demonstrate any evidence of acute fracture or dislocation. Acromioclavicular joint appears unremarkable. No widening of the coracoclavicular space is seen. Views of the right shoulder do not demonstrate any evidence of acute fracture or dislocation. Glenohumeral joint appears unremarkable. No evidence of calcific tendinitis.? IMPRESSION: No significant bony abnormality identified within the cervical spine, right clavicle, or right shoulder. Assessment & Plan Assessment & Plan (1) Back pain: Code(s): M54.9 - Dorsalgia, unspecified Category: Medical Qualifiers: Back pain laterality: left Back pain location: thoracic back pain Chronicity: acute Qualified Code(s): M54.6 - Pain in thoracic spine (2) Myofascial muscle pain: Code(s): M79.18 - Myalgia, other site Category: Medical Plan We will begin physical therapy for the patient, targeting musculoskeletal rehabilitation through structured exercises to alleviate thoracic pain. Initial imaging with thoracic and lumbar spine X-rays will be performed to evaluate for structural abnormalities or injuries. child care team lead is considered for future sessions contingent upon imaging results and physical therapy outcome. It is critical to resolve insurance and workman?s compensation issues to ensure comprehensive coverage and facilitate a return to daily living activities. Concurrent management of anxiety will continue with medication changes and mental health consultations to support the patient?s psychological wellbeing. I discussed with the patient the diagnostic approach including the necessity of X-rays for the thoracic and lumbar spine to determine any structural issues. The importance of commencing physical therapy for pain management was highlighted, with potential insurance healthcare representative pending initial treatment results. We conversed on the need to resolve administrative work and insurance matters for workman?s compensation, and the impact this may have on ensuring his recovery. Further, we covered the management of his anxiety with new medications and ongoing support from mental health services, emphasizing the importance of dealing with both psychological and physical components together. Patient was informed and verbally consented to the use of an ambient scribe for clinic note documentation during this visit. Orders: Orders PT Evaluation and Treatment Today M54.6 - Pain in thoracic spine XR lumbar spine 4V min Today M54.6 - Pain in thoracic spine XR thoracic spine 3V Today M54.6 - Pain in thoracic spine Medications: New lidocaine 5% leave on most painful area for up to 12 hrs 1 patch topical DAILY 30 ea 3RF Patient Instructions: - Schedule and attend physical therapy sessions as soon as possible. - Get thoracic and lumbar X-rays at the hospital today before leaving. - Take prescribed medications as directed, including any anxiety medication adjustments. - Stretch regularly as tolerated and apply heat or cold packs as needed for symptom relief. - Monitor symptoms and report any worsening or new symptoms promptly. - Follow up with Workman's Comp to ensure your situation is covered and resolved. - Stay engaged with mental health services for anxiety management. - Return for follow-up as advised to assess progress and adjust treatment if necessary. Coding Level of Care Code Est Pt Level 3 (54988) Complex EM visit Add On G2211 Diagnoses Acute left-sided thoracic back pain M54.6 Back pain laterality: left Back pain location: thoracic back pain Chronicity: acute Myofascial muscle pain M79.18
[2025-04-11 09:44] VITALS: BP 141/90; PULSE 74; RESP 16; O2SAT 99; BMI 33.9
--- OUTSIDE RECORDS SUMMARY | 2025-04-11 10:41 | XMS_ITS | Clinical Summary ---
Author Organization [facility] Address [address] [place] [address] Care Team Providers Care Stud Driver Name Role Phone Unavailable Primary Care Provider [...]
== END 2025-04-11 10:17 | disposition home or self-care (01) ==
LOC: HO.PMC 09:42
PROVIDERS: PCP Internal Medicine; Visit Provider Registered Nurse Emergency
DX: M54.6 Pain in thoracic spine (principal); M79.18 Myalgia, other site
CPT/HCPCS: 99213; G2211

== ENCOUNTER 2025-04-11 09:41 | Outpatient (REF) | payer OTHER, SELFPAY ==
--- NOTE | ~2025-04-11 | XR_ITS ---
EXAMINATION: X-ray lumbar spine. CLINICAL INFORMATION: Back pain. TECHNIQUE: AP oblique and lateral views. COMPARISON: None FINDINGS: No acute cortical disruption or malalignment. No lytic or blastic lesions. Small marginal osteophyte formation and endplate sclerosis at L1-2. Rudimentary ribs, T12. XR/XR lumbar spine 4V min IMPRESSION: Mild spondylosis, L1-2. Electronically signed by: Alvin Berrios MD 04/11/2025 11:12 AM EDT
--- NOTE | ~2025-04-11 | XR_ITS ---
EXAMINATION: XR THORACIC SPINE CLINICAL INFORMATION: M54.6 - Pain in thoracic spine COMPARISON: None available. TECHNIQUE: AP, lateral and swimmer's projection. FINDINGS: No acute cortical disruption or gross malalignment. No gross lytic or blastic lesions. Endplate sclerosis at multiple levels of the mid to lower axial skeleton and small marginal osteophyte formation. Mild S-shaped curvature of the upper thoracic spine. XR/XR thoracic spine 3V IMPRESSION: No acute fracture or listhesis. Mild spondylosis and scoliosis. Electronically signed by: Alvin Berrios MD 04/11/2025 11:07 AM EDT
== END 2025-04-11 09:42 | disposition home or self-care (01) ==
LOC: HO.XRAY 09:41
PROVIDERS: PCP Internal Medicine; Visit Provider Registered Nurse Emergency
DX: M54.6 Pain in thoracic spine (principal)
CPT/HCPCS: 72072; 72110

== ENCOUNTER → 2025-04-11 10:31 | Outpatient (BNV) | payer OTHER, SELFPAY | PROVIDERS: PCP Internal Medicine; Visit Provider Radiology Diagnostic Radiology | DX: M47.816 Spondylosis without myelopathy or radiculopathy, lumbar region (principal); M47.814 Spondylosis without myelopathy or radiculopathy, thoracic region | CPT/HCPCS: 72072; 72110 ==

== ENCOUNTER 2025-04-19 10:17 | Outpatient (AMB) | payer OTHER, SELFPAY ==
--- NOTE | 2025-04-19 10:23 | A.OFFPC_ITS ---
Vital Signs 04/19/25 10:25 Height 6 ft Weight 250 lb BMI 33.9 BP 124/74 Blood Pressure Location Rt brachial Position Sitting Respiration 15 Pulse 64 Pulse Source Pulse Oximeter Temp 98.1 F Pulse Oximetry (%) 100 Oxygen Delivery Method Room Air Intake Visit Reasons: WC/date injury 03/26 mid back [facility] [place] Intake Note: Pt is here today work injury on 03/26/25, mid back pain no improvement: Pt went to [facility] [place] ER Allergies mometasone furoate (From NASONEX) Allergy (Intermediate, Verified 04/23/25 21:21) PALPITATIONS cat dander Allergy (Unknown, Verified 04/23/25 21:21) unknown Doxycycline Hyclate Allergy (Unknown, Verified 04/23/25 21:21) Hives, hives;fever fluticasone (From Flonase) Allergy (Unknown, Verified 04/23/25 21:21) heart palpitations oxycodone (Percocet) Allergy (Unknown, Verified 04/23/25 21:21) nausea/dizziness Flour/Dough Allergy (Unknown, Uncoded 04/23/25 21:21) Hives/trouble breathing Medication List - Last Reconciled 04/19/25 by Ana Dockery MD cholecalciferol (vitamin D3) 10 mcg PO DAILY clonazepam (Klonopin) 0.5 mg PO BID PRN hydroxyzine HCl 25 mg PO BEDTIME lidocaine 5% 1 patch topical DAILY meloxicam 15 mg PO DAILY propranolol 10 mg PO BID 10 days tizanidine 2 mg PO Q8H PRN Tobacco use date assessed: 04/19/25 Dental Screening Dental Screen Date: 04/19/25 Did you have a dental visit in the last 12 months?: No Did you have a dental problem in the last 6 months where you did not have access to dental care?: No Was dental information given to patient?: Patient declined HPI WC/date injury 03/26 mid back [facility] [place] HPI Details 34-year-old male presenting today for fo llow-up with regards to his left sided thoracic back pain. The symptoms started approximately four weeks ago from a work related mechanical strain incident, followed by an exacerbation thre e weeks ago during a work-related task. He has been taking meloxicam which she states has not afforded any relief, has been applying like to keen patches to affected area which affords only temporary relief. He has been seen by workman's [facility] doctor and referred for physical therapy but is not scheduled to start until next week. He is here today requesting to get his work excuse extended until after he gets cleared by Physical therapy. [facility] Medical History (Updated 04/23/25 @ 21:27 by Ana Dockery MD) Erythema intertrigo Family history of Crohn's disease GERD (gastroesophageal reflux disease) Obesity Surgical History No pertinent past surgical history Family History Father Unknown family medical history Subacromial bursitis of both shoulders Substance abuse Mother IBS (irritable bowel syndrome) Mental health disorder Maternal Grandmother Unknown family medical history Brother Crohn's disease Maternal Aunt Crohn's disease Social History Housing: House Alcohol intake: never Patient Tobacco Use Status: Never used Tobacco e-Cigarette/Vaping Use: Never Used Second Hand Smoke Exposure: No Substance Use Type: Marijuana service: No Current occupational status: employed Cognitive needs: No Hearing needs: No Vision needs: No Questionnaire PHQ-9 Over the last 2 weeks, how often have you been bothered by any of the following problems? 1. Little interest or pleasure in doing things: several days 2. Feeling down, depressed, or hopeless: several days 3. Trouble falling or staying asleep, or sleeping too much: more than half the days 4. Feeling tired or having little energy: more than half the days 5. Poor appetite or overeating: more than half the days 6. Feeling bad about yourself - or that you are a failure or have let yourself or your family down: more than half the days 7. Trouble concentrating on things, such as reading the newspaper or watching television: nearly every day 8. Moving or speaking so slowly that other people could have noticed. Or the opposite - being so fidgety or restless that you have been moving around a lot more than usual: more than half the days 9. Thoughts that you would be better off or of hurting yourself in some way: not at all Total score: 15 Source: Developed by Drs. Patrick Gandara, Glendy Barrientos, Maged Fabian and colleagues, with an educational belinda from [employer]. Thrive Questionnaire Date Thrive assessed: 01/06/23 I am a: Patient What is your living situation today?: I have a steady place to live Within the past 12 months, did the food you bought not last and you didn't have the money to get more?: Never true Within the past 12 months, did you worry whether your food would run out before you got money to buy more?: Sometimes True Do you have trouble paying for medicines?: No Do you have trouble getting transportation to medical appointments?: No Do you have trouble paying your heating and electricity bill?: Yes Do you have trouble taking care of your child, family member or friend?: No Do you have trouble with day-to-day activities such as bathing, preparing meals, shopping, managing finances, etc.?: Yes Are you currently unemployed and looking for a job?: No Are you interested in more education?: No Please select the resources that you would like help with: None Currently or been in a relationship where the following occur: I choose not to answer THRIVE Score: 2 AUDIT C Alcohol Use Questionnaire (AUDIT-C) 1. How often do you have a drink containing alcohol?: Monthly or less 2. How many drinks containing alcohol do you have on a typical day when you are drinking?: 1 or 2 3. How often do you have six or more drinks on one occasion?: Less than monthly Total Score: 2 BHAVESH-7 AMB Questionnaire BHAVESH-7 Feeling nervous, anxious, or on edge: 3 = Nearly every day Not being able to stop or control worryin = Nearly every day Worrying too much about different things: 3 = Nearly every day Trouble relaxin = Nearly every day Being so restless that it is hard to sit still: 3 = Nearly every day Becoming easily annoyed or irritable: 2 = More than half the days Feeling afraid as if something awful might happen: 3 = Nearly every day Total BHAVESH-7 score (0-4 normal; 5-9 mild; 10-14 moderate; 15-21 severe): 20 Source: Developed by Glendy Rothman Kurt Kroenke and colleagues, with an educational belinda from [employer]. Review of Systems Const Reports no additional complaints and Denies weakness ENT Reports no additional complaints Card Reports no additional complaints Resp Reports no additional complaints GI Reports no additional complaints Musc Reports as per HPI Skin/Breast Denies lesions and Denies rash Neuro Denies weakness Physical exam (Primary Care) Vital Signs: Last Vital Signs Temp 98.1 F 04/19/25 10:25 Pulse 64 04/19/25 10:25 Resp 15 04/19/25 10:25 BP 124/74 04/19/25 10:25 Pulse Ox 100 04/19/25 10:25 Oxygen Delivery Method Room Air 04/19/25 10:25 BMI result Body Mass Index 33.9 Tobacco/Smoking Status: Tobacco use Status Tobacco use date assessed 04/19/25 04/19/25 10:30 Patient Tobacco Use Status Never used Tobacco 04/19/25 10:24 e-Cigarette/Vaping Use Never Used 04/19/25 10:24 PHQ-9: PHQ-9 Score PHQ-9: Total score 15 04/19/25 10:59 Thrive Assessment: Date of Thrive Assessment Date Thrive assessed 01/06/23 04/19/25 10:24 Currently or been in a relationship where the following occur: I choose not to answer Const General: cooperative and no acute distress Nutritional Appearance: obese Orientation/consciousness: patient oriented x3 HENIA General nose exam: Normal external nose present Face and sinus: Yes normal facial exam Eyes General: appearance normal, both eyes and all related structures Neck Neck: Yes no lymphadenopathy Chest Chest palpation & inspection: normal inspection of the chest Resp Effort & Inspection: normal respiratory effort and able to speak in complete sentences Cardio Other: S1-S2 present regular rate and rhythm GI Palpation (GI): Soft to palpation, nontender, no guarding and no masses Back/Spine/Pelvis Other: Slight fullness over left thoracic area, slightly tender to palpation Skin General skin exam: no rashes or lesions noted Neuro General: patient oriented x3, gait normal and no focal motor deficits Coding Level of Care Code Est Pt Level 4 (48703) Diagnoses Muscle strain T14.8XXA Assessment & Plan Assessment & Plan (1) Muscle strain: Code(s): T14.8XXA - Other injury of unspecified body region, initial encounter Plan: Patient to start physical therapy soon. He was given a prescription for prednisone 10 mg per tablet to take once a day in a.m. for 5 days to afforded some relief of pain. Meloxicam and lidocaine patch discontinued. Work note given extending his leave from work from 04/17/2025 until cleared by Physical therapy. Medications: New prednisone Take in a.m. with breakfast for 5 days. Do not take ibuprofen when taking prednisone 10 mg PO DAILY 5 tabs 0RF 5 days Discontinued propranolol Discontinued Reason: Doctor's Order 10 mg PO BID 10 days 20 tabs 0RF meloxicam Discontinued Reason: Doctor's Order 15 mg PO DAILY 15 tabs 0RF lidocaine 5% leave on most painful area for up to 12 hrs Discontinued Reason: Doctor's Order 1 patch topical DAILY 30 ea 3RF
[2025-04-19 10:25] VITALS: BP 124/74; PULSE 64; RESP 15; TEMP 36.7; O2SAT 100; BMI 33.9
--- OUTSIDE RECORDS SUMMARY | 2025-04-19 11:53 | XMS_ITS | Clinical Summary ---
Author Organization [facility] Address [address] [place] [address] Care Team Providers Care Fire Manager Name Role Phone Unavailable Primary Care Provider [...]
== END 2025-04-19 11:21 | disposition home or self-care (01) ==
PROVIDERS: PCP Internal Medicine; Visit Provider Internal Medicine
DX: T14.8XXA Other injury of unspecified body region, initial encounter (principal)

== ENCOUNTER → 2025-04-19 10:17 | Outpatient (BNVA) | payer OTHER, SELFPAY | PROVIDERS: PCP Internal Medicine; Visit Provider Internal Medicine | DX: M54.6 Pain in thoracic spine (principal) | CPT/HCPCS: 96127; 99212 ==